=== PATIENT | female | born 1990 | race Caucasian/White ===

== ENCOUNTER 2022-05-23 08:00 | Emergency (ER) | payer SELFPAY ==
[2022-05-23] MEDS ORDERED: Dexamethasone 4 MG TAB ONE (08:54)
[2022-05-23] MEDS ORDERED: HYDROcodone/Acetaminophen 5/325 mg Tablet ONE (10:56)
== END 2022-05-23 09:03 | disposition home or self-care (01) ==
LOC: CSHERS 08:00
DX: H66.91 Otitis media, unspecified, right ear (principal); J02.9 Acute pharyngitis, unspecified; E11.9 Type 2 diabetes mellitus without complications
CPT/HCPCS: 99283; J8540

== ENCOUNTER 2022-05-30 09:47 | Emergency (ER) | payer SELFPAY ==
[2022-05-30] MEDS ORDERED: Ketorolac Tromethamine 30 MG/ML VIAL ONE (12:21)
== END 2022-05-30 13:10 | disposition home or self-care (01) ==
LOC: CSHERS 09:47
DX: B34.9 Viral infection, unspecified (principal); E11.9 Type 2 diabetes mellitus without complications; Z20.822 Contact with and (suspected) exposure to COVID-19
CPT/HCPCS: 87081; 87430; 96372; 99283; J1885; U0003; U0005

== ENCOUNTER 2022-06-19 11:14 | Emergency (ER) | payer OTHER, SELFPAY ==
[2022-06-19 12:39] LABS: #Eosinphils 0.1 10x3/uL (0.0-0.5); #Monocytes 0.4 10x3/uL (0.0-1.1); %Basophils 0.5 % (0.0-2.0); %Eosinophils 1.6 % (0.0-6.0); %Neutrophils 66.8 % (40.0-75.0); Hemoglobin 13.3 g/dL (12.0-15.5); Mean Corpuscular HGB CONC 32.9 g/dL (32.0-36.0); Mean Corpuscular Hemoglobin 28.1 pg (27.0-33.0); Mean Corpuscular Volume 85.2 fl (81.6-98.3); Mean Platelet Volume 10.5 fl (7.4-10.4); Platelet Count 301 10x3/uL (150-450); RBC Distribution Width 13.2 % (11.5-14.5); Red Blood Cell (RBC) Count 4.74 10x6/uL (3.90-5.03); White Blood Cell (WBC) Count 7.5 10x3/uL (3.5-10.5)
[2022-06-19 12:57] LABS: Magnesium 1.8 mg/dL (1.6-2.6)
[2022-06-19 12:58] LABS: ALT (SGPT) 26 U/L (8-55); AST (SGOT) 15 U/L (5-34); Albumin 4.3 g/dL (3.5-5.0); Alkaline Phosphatase 53 U/L (40-110); Anion Gap 14 mmol/L (10-20); BUN (Urea Nitrogen) 9 mg/dL (7.0-18.7); Bilirubin, Total 0.2 mg/dL (0.2-1.2); Calc. Creatinine Clearance 0 mL/min (70-130); Calcium 9.7 mg/dL (7.8-10.44); Carbon Dioxide 24 mmol/L (22-29); Chloride 101 mmol/L (98-107); Estimated GFR 107; Globulin 2.8 g/dL (2.4-3.5); Glucose 335 mg/dL (70-105); Phosphorus 4.1 mg/dL (2.3-4.7); Potassium 4.1 mmol/L (3.5-5.1); Protein, Total 7.1 g/dL (6.0-8.3); Sodium 135 mmol/L (136-145)
[2022-06-19] MEDS ORDERED: Ondansetron PF 4 MG/2 ML Vial ONE (13:42)
[2022-06-19] MEDS ORDERED: Acetaminophen 500 MG TAB ONE (13:42)
== END 2022-06-19 16:19 | disposition home or self-care (01) ==
LOC: CSHERS 11:14
DX: E11.65 Type 2 diabetes mellitus with hyperglycemia (principal); Z79.84 Long term (current) use of oral hypoglycemic drugs
CPT/HCPCS: 36416; 71045; 80053; 82010; 83735; 84100; 85025; 96374; J2405

== ENCOUNTER 2024-03-10 17:43 | Inpatient (IN) | payer BC, OTHER ==
[2024-03-10] MEDS ORDERED: Acetaminophen 325 MG TAB ONE (18:12)
[2024-03-10] MEDS ORDERED: Ondansetron PF 4 MG/2 ML Vial ONE (18:12)
[2024-03-10] MEDS ORDERED: Ketorolac Tromethamine 30 MG (1 mL) VIAL ONE (18:12)
[2024-03-10 18:30] LABS: BHCG - Serum Negative (NEGATIVE); Pregs Control Background? CLEAR/WHITE (CLR/WHITE); Pregs Control Bar Appear? YES (CONTROL BAR)
[2024-03-10 18:36] LABS: #Basophils 0.04 10x3/uL (0.0-0.2); #Eosinophils 0.02 10x3/uL (0.0-0.5); #Monocytes 0.57 10x3/uL (0.0-1.1); #Neutrophils 8.74 10x3/uL (1.5-8.4); %Basophils 0.4 % (0.0-2.0); %Eosinophils 0.2 % (0.0-6.0); %Lymphocytes 6.7 % (18.0-47.0); %Monocytes 5.7 % (0.0-10.0); %Neutrophils 86.7 % (40.0-75.0); Hematocrit 44.5 % (34.9-44.5); Hemoglobin 14.8 g/dL (12.0-15.5); Mean Corpuscular HGB CONC 33.3 g/dL (32.0-36.0); Mean Corpuscular Hemoglobin 29.3 pg (27.0-33.0); Mean Corpuscular Volume 88.1 fL (81.6-98.3); Mean Platelet Volume 10.9 fL (7.4-10.4); Platelet Count 268 10x3/uL (150-450); RBC Distribution Width 12.4 % (11.5-14.5); Red Blood Cell (RBC) Count 5.05 10x6/uL (3.90-5.03); White Blood Cell (WBC) Count 10.1 10x3/uL (3.5-10.5)
[2024-03-10 18:37] LABS: ALT (SGPT) 79 U/L (8-55); AST (SGOT) 58 U/L (5-34); Albumin 3.8 g/dL (3.5-5.0); Alkaline Phosphatase 94 U/L (40-110); Anion Gap 20 mmol/L (10-20); BUN (Urea Nitrogen) 5 mg/dL (7.0-18.7); Bilirubin, Total 0.9 mg/dL (0.2-1.2); Calc. Creatinine Clearance 0 mL/min (70-130); Calcium 9.2 mg/dL (7.8-10.44); Carbon Dioxide 18 mmol/L (22-29); Chloride 100 mmol/L (98-107); Estimated GFR 88; Globulin 3.7 g/dL (2.4-3.5); Protein, Total 7.5 g/dL (6.0-8.3); Sodium 134 mmol/L (136-145)
[2024-03-10 18:39] LABS: Critical Call Chemistry AT ERS.NY READ BACK RESULT @ 1838; Glucose 467 mg/dL (70-105)
[2024-03-10] MEDS ORDERED: Azithromycin 500 MG VIAL ONE (19:27)
[2024-03-10] MEDS ORDERED: cefTRIAXone (ROCEPHIN) 1 GM VIAL ONE (19:27)
[2024-03-10] MEDS ORDERED: Dextrose 50% Abboject 50 ML SYRINGE SLOW IVP PRN (19:47)
[2024-03-10] MEDS ORDERED: Senokot S 8.6-50 MG TAB PO PRN (19:47)
[2024-03-10] MEDS ORDERED: Dextrose 5% in Water 1,000 ML IV PRN (19:47)
[2024-03-10] MEDS ORDERED: Zolpidem Tartrate 5 MG TAB PO PRN (19:47)
[2024-03-10] MEDS ORDERED: Calcium Carbonate 500 MG ChewTAB PO PRN (19:47)
[2024-03-10] MEDS ORDERED: Glucagon 1 MG/ML KIT IM PRN (19:47)
[2024-03-10 21:25] VITALS: BMI 28.2
[2024-03-10] MEDS: Acetaminophen 325 MG TAB PO PRN (22:09)
[2024-03-10] MEDS: Insulin Regular, Human 100 UNIT/ML 10 ML VIAL SC SCH (22:11)
[2024-03-10] MEDS: Guaifenesin DM 100-10/5 ML UDCUP PO PRN (22:11)
[2024-03-10] MEDS: Benzonatate 100 MG CAP PO SCH (22:11)
[2024-03-10] MEDS: Lactated Ringer's 1,000 ML IV SCH (22:11)
[2024-03-10 22:35] LABS: Bilirubin Neg (Negative); Blood, Urine 25 (Negative); Clarity Slightly Cloudy (Clear); Glucose, Urine (Dipstick) >=1000 mg/dL (Negative); Ketone, Urine 50 mg/dL (Negative); Leukocyte 500 (Negative); Nitrite Negative (Negative); Protein, Urine (Dipstick) Negative (Neg-Trace); Specific Gravity, Urine 1.015 (1.005-1.030)
[2024-03-10 22:48] LABS: RBC/HPF 0-3 HPF (0-3)
[2024-03-10 22:49] LABS: Bacteria/HPF 2+ HPF (None Seen); Squamous Epithelial 0-3 HPF (0-3); Yeast-Budding 2+ HPF (None Seen)
[2024-03-10 22:52] LABS: Legionella Urinary Ag Negative (Negative)
[2024-03-10 22:53] LABS: Strep pneumo Urine Ag NEGATIVE (NEGATIVE)
[2024-03-11] MEDS: Insulin Lispro 100 UNIT/ML 10 ML VIAL SC PRN (00:30)
[2024-03-11 04:26] LABS: #Basophils 0.04 10x3/uL (0.0-0.2); #Eosinophils 0.13 10x3/uL (0.0-0.5); #Monocytes 0.47 10x3/uL (0.0-1.1); #Neutrophils 4.96 10x3/uL (1.5-8.4); %Basophils 0.6 % (0.0-2.0); %Eosinophils 1.9 % (0.0-6.0); %Lymphocytes 16.6 % (18.0-47.0); %Neutrophils 73.6 % (40.0-75.0); Hematocrit 37.8 % (34.9-44.5); Hemoglobin 12.8 g/dL (12.0-15.5); Mean Corpuscular HGB CONC 33.9 g/dL (32.0-36.0); Mean Corpuscular Hemoglobin 29.5 pg (27.0-33.0); Mean Corpuscular Volume 87.1 fL (81.6-98.3); Mean Platelet Volume 10.7 fL (7.4-10.4); Platelet Count 241 10x3/uL (150-450); RBC Distribution Width 12.6 % (11.5-14.5); Red Blood Cell (RBC) Count 4.34 10x6/uL (3.90-5.03); White Blood Cell (WBC) Count 6.7 10x3/uL (3.5-10.5)
[2024-03-11 04:46] LABS: ALT (SGPT) 57 U/L (8-55); AST (SGOT) 36 U/L (5-34); Albumin 2.9 g/dL (3.5-5.0); Alkaline Phosphatase 75 U/L (40-110); Anion Gap 12 mmol/L (10-20); BUN (Urea Nitrogen) 7 mg/dL (7.0-18.7); Bilirubin, Total 0.6 mg/dL (0.2-1.2); Calc. Creatinine Clearance 141 mL/min (70-130); Calcium 8.3 mg/dL (7.8-10.44); Carbon Dioxide 21 mmol/L (22-29); Chloride 111 mmol/L (98-107); Estimated GFR 116; Globulin 3.4 g/dL (2.4-3.5); Glucose 230 mg/dL (70-105); Potassium 3.4 mmol/L (3.5-5.1); Protein, Total 6.3 g/dL (6.0-8.3); Sodium 141 mmol/L (136-145)
[2024-03-11] MEDS ORDERED: FLU (Fluarix Triv) TS24-25(6MOS UP)/PF 45 MCG/0.5 ML Syringe IM ONE (05:00)
[2024-03-11] MEDS: Potassium Chloride 20 MEQ TAB PO SCH (05:47)
[2024-03-11] MEDS: Benzonatate 100 MG CAP PO SCH (09:55)
[2024-03-11] MEDS: Alogliptin 6.25 MG TAB PO SCH (09:55)
[2024-03-11] MEDS: Enoxaparin 40 MG (0.4 mL) SYRINGE SC SCH (09:56)
[2024-03-11 14:50] LABS: Hemoglobin A1c 10.5 % (4.0-6.0)
[2024-03-11] MEDS: Insulin Regular, Human 100 UNIT/ML 10 ML VIAL SC PRN (16:57)
[2024-03-11] MEDS: metFORMIN 500 MG TAB PO SCH (17:01)
[2024-03-11] MEDS: cefTRIAXone\\ROCEPHIN 2 GM in Sodium Chloride 0.9% 100 ML IVPB SCH (19:00)
[2024-03-11] MEDS: Azithromycin 500 MG in Sodium Chloride 0.9% 250 ML 250 ML IVPB SCH (21:20)
[2024-03-12 04:19] LABS: #Basophils 0.03 10x3/uL (0.0-0.2); #Eosinophils 0.12 10x3/uL (0.0-0.5); #Monocytes 0.43 10x3/uL (0.0-1.1); #Neutrophils 4.82 10x3/uL (1.5-8.4); %Basophils 0.5 % (0.0-2.0); %Eosinophils 1.8 % (0.0-6.0); %Lymphocytes 16.3 % (18.0-47.0); %Monocytes 6.6 % (0.0-10.0); %Neutrophils 74.3 % (40.0-75.0); Hematocrit 34.7 % (34.9-44.5); Mean Corpuscular HGB CONC 34.6 g/dL (32.0-36.0); Mean Corpuscular Hemoglobin 29.8 pg (27.0-33.0); Mean Corpuscular Volume 86.1 fL (81.6-98.3); Mean Platelet Volume 10.8 fL (7.4-10.4); Platelet Count 247 10x3/uL (150-450); RBC Distribution Width 12.6 % (11.5-14.5); Red Blood Cell (RBC) Count 4.03 10x6/uL (3.90-5.03); White Blood Cell (WBC) Count 6.5 10x3/uL (3.5-10.5)
[2024-03-12 04:30] LABS: Anion Gap 13 mmol/L (10-20); BUN (Urea Nitrogen) 5 mg/dL (7.0-18.7); Calc. Creatinine Clearance 170 mL/min (70-130); Calcium 8.2 mg/dL (7.8-10.44); Carbon Dioxide 21 mmol/L (22-29); Chloride 108 mmol/L (98-107); Estimated GFR 121; Glucose 219 mg/dL (70-105); Potassium 3.9 mmol/L (3.5-5.1); Sodium 138 mmol/L (136-145)
[2024-03-12] MEDS: Ondansetron PF 4 MG/2 ML Vial IVP PRN (05:16)
[2024-03-12] MEDS: Ketorolac Tromethamine 30 MG (1 mL) VIAL IVP SCH (06:32)
[2024-03-12 08:08] VITALS: BP 113/81; TEMP 97.8
[2024-03-12] MEDS: Lantus 1000 UNITS/10 ML VIAL SC SCH (08:10)
== END 2024-03-12 11:53 | disposition home or self-care (01) | DRG 871 ==
LOC: CSHERS 17:43 → CSHTELE 19:36 → OBSVTOIN 19:37
PROVIDERS: ADMIT Student in an Organized Health Care Education/Training Program; ATTEND Hospitalist
DX: B37.7 Candidal sepsis (principal); J18.9 Pneumonia, unspecified organism; J96.01 Acute respiratory failure with hypoxia; E87.20 Acidosis, unspecified; E11.9 Type 2 diabetes mellitus without complications; E86.0 Dehydration; E87.6 Hypokalemia; Z90.49 Acquired absence of other specified parts of digestive tract; Z98.51 Tubal ligation status
CPT/HCPCS: 36415; 36416; 71045; 80048; 80053; 81001; 82010; 83036; 83605; 84145; 84703; 85025; 87040; 87077; 87086; 87428; 87449; 87899; 93005; 94760; 94762; 96361; 96365; 96367; 96375; J0456; J0696; J1650; J1815; J1885; J2405; J7050; J7120

== ENCOUNTER 2025-04-08 11:08 | Emergency (ER) | payer BC, SELFPAY | END 2025-04-08 13:18 | disposition home or self-care (01) | LOC: CSHERS 11:08 | DX: J04.0 Acute laryngitis (principal); J32.0 Chronic maxillary sinusitis; E11.65 Type 2 diabetes mellitus with hyperglycemia | CPT/HCPCS: 36416; 87081; 87428; 87430; 99283 ==